=== PATIENT | female | born 1965 | race Caucasian/White ===

== ENCOUNTER 2017-12-10 11:42 | Emergency (ER) | payer BC ==
[~2017-12-10] VITALS: Ht 165.1 cm; Wt 79.5 kg
[2017-12-10 11:44] VITALS: TEMP 97.8
[2017-12-10 12:22] LABS: COLLECTION METHOD CLEAN CATCH
[2017-12-10 12:25] LABS: BASO % 0.7 % (0.0-2.0); EOS # 0.1 (0.0-0.7); EOS % 2.4 % (0-4.0); GRAN # 2.4 (1.4-6.5); GRAN % 58.4 % (42.2-75.2); HEMOGLOBIN 14.2 g/dl (12.5-16.0); LYMPH # 1.1 (1.2-3.4); LYMPH % 27.1 % (20.0-51.0); MEAN CELL VOLUME 95 fl (80.0-100.0); MEAN CORPUSCULAR HEMOGLOBIN 32 pg (27.0-31.0); MEAN CORPUSCULAR HGB CONC 34 g/dl (33.0-37.0); MEAN PLATELET VOLUME 9.4 fl (7.4-10.4); MONO # 0.4 (0.1-0.6); MONO % 10.7 % (1.7-9.3); PLATELET COUNT 137 K/mm3 (130-400); RED BLOOD COUNT 4.42 M/mm3 (4.10-5.30); REDCELL DISTRIBUTION WIDTH-CV 12.5 % (11.5-14.5)
[2017-12-10 12:28] LABS: PH 5 (5-8); SQUAMOUS EPITHELIAL 0-2 /hpf; URINE APPEARANCE Clear; URINE BACTERIA Rare /hpf; URINE BILIRUBIN Negative (NEGATIVE); URINE BLOOD Negative (NEGATIVE); URINE COLOR Yellow; URINE GLUCOSE Negative (NEGATIVE); URINE KETONE Trace (NEGATIVE); URINE LEUKOCYTE ESTERASE Negative (NEGATIVE); URINE NITRATE Negative (NEGATIVE); URINE PROTEIN(semi-quant) Negative (NEGATIVE); URINE RBC 0-2 /hpf; URINE UROBILINOGEN Negative (NEGATIVE)
[2017-12-10 12:34] LABS: ALANINE AMINOTRANSFERASE 40 U/L (9-52); ALKALINE PHOSPHATASE 64 U/L (50-136); ANION GAP 13 mmol/L (7-16); AST,SGOT 25 U/L (15-37); BILIRUBIN,TOTAL 0.5 mg/dL (0.0-1.0); BLOOD UREA NITROGEN 14 mg/dL (7-17); CALCIUM 9.5 mg/dL (8.4-10.2); CARBON DIOXIDE 24 mmol/L (22-30); CHLORIDE 104 mmol/L (98-107); CREATININE, serum 0.58 mg/dL (0.52-1.25); GLUCOSE 87 mg/dL (74-106); LIPASE 110 U/L (23-300); SODIUM 141 mmol/L (137-145); TOTAL PROTEIN 7.6 gm/dL (6.4-8.2)
[2017-12-10 12:35] LABS: C-REACTIVE PROTEIN < 0.5 mg/dL (0.0-0.9)
[2017-12-10] MEDS ORDERED: NORCO 325 MG-51 TAB PO (13:42)
[2017-12-10 13:54] VITALS: BP 130/83; PULSE 60
== END 2017-12-10 13:57 | disposition home or self-care (01) ==
LOC: COL.ER 11:42
PROVIDERS: Family Medicine
DX: K59.00 Constipation, unspecified (principal); R10.11 Right upper quadrant pain; Z90.89 Acquired absence of other organs
CPT/HCPCS: J1885; J2270; J2405; J7030

== ENCOUNTER → 2018-01-04 | Outpatient (CLI) | payer BC ==
[~2018-01-04] MED LIST: NORCO 325 MG-51 TAB PO
== END ==
LOC: COL.RAD 05:44
DX: R10.11 Right upper quadrant pain (principal)
CPT/HCPCS: A9537; J2805

== ENCOUNTER 2019-03-02 07:15 | Day surgery (SDC) | payer BC ==
[~2019-03-02] VITALS: Ht 165.1 cm; Wt 88.0 kg
[2019-03-02 08:05] VITALS: BP 122/82; PULSE 66; TEMP 98
[2019-03-02 09:20] VITALS: BP 123/94; PULSE 67; TEMP 97.8
--- NOTE | 2019-03-02 09:22 | NUR ---
Pt arrived to room from Endo procedure. Pt drowsym oriented x3. Pt walked to chair from stretcher x2 assist. Steady gait. Pt denies any nausea or pain. Request water, jello and applesauce at this time. Report received from SAULO Kim.
[2019-03-02 09:35] VITALS: BP 126/70; PULSE 87
--- NOTE | 2019-03-02 09:35 | NUR ---
Pt tolerating food and drink. Denies any nausea. Pt's in room.
[2019-03-02 09:50] VITALS: BP 124/77; PULSE 63
[2019-03-02 10:05] VITALS: BP 122/78; PULSE 57
--- NOTE | 2019-03-02 10:52 | NUR ---
Discussed discharge instructions, med list and procedure information with pt. Pt states she wants to keep taking her Nexium PRN at home and not start the prescription. Pt states she wants to see Dr Pantoja as soon as possible. Recommended to call Dr. pavon's office to set up appointment with Dr Pantoja. Answered all questions to pt's satisfaction. Pt signed discharged paperwork.
--- NOTE | 2019-03-02 10:56 | NUR ---
pt discharged from [facility]. Pt left unit via wheelchair to private vehicle driven by spouse.
[2019-03-02 11:58] VITALS: BP 119/73; PULSE 67
== END 2019-03-02 10:56 | disposition home or self-care (01) ==
LOC: SDCO 07:15
DX: D12.5 Benign neoplasm of sigmoid colon (principal); K21.9 Gastro-esophageal reflux disease without esophagitis; K44.9 Diaphragmatic hernia without obstruction or gangrene; R19.7 Diarrhea, unspecified; K59.00 Constipation, unspecified; Z90.710 Acquired absence of both cervix and uterus; Z88.8 Allergy status to other drugs, medicaments and biological substances; Z91.040 Latex allergy status
CPT/HCPCS: J2250; J2405; J3010; J7030

== ENCOUNTER 2019-03-16 05:25 | Day surgery (SDC) | payer BC ==
[~2019-03-16] VITALS: Ht 165.1 cm; Wt 88.5 kg
[2019-03-16] VITALS (7 sets, daily range): BP systolic 115–127; BP diastolic 58–82; PULSE 66–83; TEMP 97.3–97.5
--- NOTE | 2019-03-16 06:21 | NUR ---
TO RM AT 0544- CALL LIGHT IN REACH AT BEDSIDE.
[2019-03-16] MEDS ORDERED: COLACE 100100 MG/CAP PO (09:11)
[2019-03-16] MEDS ORDERED: MOTRIN 600600 MG/TAB PO (09:11)
[2019-03-16] MEDS ORDERED: NORCO 325 MG-51 TAB PO (09:11)
--- NOTE | 2019-03-16 10:05 | NUR ---
TO RM 8 PER CART FROM PACU. ALERT ORIENTED X3, TALKING WITH STAFF AND . SWIFE SET OVER SITE CLEAN DRY INTACT. C/O PAIN 04/11. RECEIVED WATER AND TAKING SIPS. DENIES N/V
--- NOTE | 2019-03-16 10:20 | NUR ---
CONTINUES TO C/O INCREASING PAIN. RECEIVED DILAUDID 0.5MG IV
--- NOTE | 2019-03-16 10:50 | NUR ---
RECEIVED PEPSI, CRACKERS AND NORCO 2 TABS FOR C/O PAIN
--- NOTE | 2019-03-16 11:00 | NUR ---
PATIENT STATED SHE'S FEELING BETTER. RECEIVED GLORIA
--- NOTE | 2019-03-16 12:00 | NUR ---
UP AMBULATED TO BATHROOM VOIDED AND TOLERATED WELL.
--- NOTE | 2019-03-16 12:20 | NUR ---
UPON RETURNING TO - PATIENT STARTED C/O PAIN COMING BACK. INSTRUCTED PATIENT TO ALTERNATE NORCO WITH MOTRIN. RECEIVED DISCHARGE INSTRUCTIONS AND VERBALIZED UNDERSTANDING.
--- NOTE | 2019-03-16 12:30 | NUR ---
DISCHARGED PER WC BY NURSING STAFF TO PRIVATE CAR IN CARE OF .
== END 2019-03-16 12:35 | disposition home or self-care (01) ==
LOC: SDCO 05:25
DX: K81.1 Chronic cholecystitis (principal); Z90.710 Acquired absence of both cervix and uterus; Z80.9 Family history of malignant neoplasm, unspecified; Z91.040 Latex allergy status; Z88.8 Allergy status to other drugs, medicaments and biological substances
CPT/HCPCS: J0690; J1100; J1170; J2405; J2704; J3010; J7120; Q9967

== ENCOUNTER → 2021-01-28 | Outpatient (CLI) | payer BC ==
[~2021-01-28] MED LIST changes: +COLACE 100100 MG/CAP PO; +MOTRIN 600600 MG/TAB PO
== END ==
LOC: COL.RAD 14:31
DX: R10.10 Upper abdominal pain, unspecified (principal); R10.816 Epigastric abdominal tenderness; R19.4 Change in bowel habit; R63.0 Anorexia; Z90.49 Acquired absence of other specified parts of digestive tract; Z90.710 Acquired absence of both cervix and uterus
CPT/HCPCS: Q9967